=== PATIENT | female | born 1990 | race Caucasian/White ===

== ENCOUNTER 2016-07-13 20:55 | Emergency (ER) | payer OTHER ==
[~2016-07-13 20:55] MED LIST: ALBUTEROL MININEB NEB; ALBUTEROL17 G1 IH; ALBUTEROL17 GM; ALBUTEROL17 GM INH; AMOXICILLIN250 MG; BENZONATATE PO; BIRTHCONTROL IMPLANT; BROMPHED; DICLOFENAC PO; DOXYCYCLINE PO; FIORINAL CAPSUL1 CAP PO; FLEXERIL10 MG PO; GABAPENTIN800 MG PO; IBUPROFEN PO; MOTRIN600 M2 PO; NO MEDICATIONS; OXAYDO7.5 MG PO; PERCOCET 10/3251 TAB PO; PHENERGAN PO; PHENERGAN25 MG PO; PRENATAL MULITV1 TAB PO; PRENATAL1 TA1 PO; REGLAN PO; ROBITUSSIN A-C S5 ML; ULTRAM PO; UNISOM25 MG PO; VICODIN PO; VITAMIN B650 M2 PO; VOLTAREN75 MG PO; ZITHROMAX PO; ZOFRAN PO
[2016-07-13 21:08] LABS: INFLUENZA A POS (NEG); INFLUENZA B NEG (NEG)
[2016-07-13 21:38] LABS: URINE SOURCE CLEAN CATCH
[2016-07-13 21:39] LABS: BASOPHIL# 0.1 X10e3 (0-0.3); BASOPHIL% 0.4 % (0-2.5); EOSINOPHIL% 0.2 % (0.0-7.0); HEMATOCRIT 40.3 % (35.0-45.0); HEMOGLOBIN 13.4 gm/dL (12.0-16.0); LYMPHOCYTE# 1.5 X10e3 (1.0-3.5); LYMPHOCYTE% 8.8 % (17.0-45.0); MEAN CELL VOLUME 89.1 FL (83-96); MEAN CORPUSCULAR HEMOGLOBIN 29.7 PG (28-34); MEAN CORPUSCULAR HGB CONC 33.3 g/dL (30-36); MEAN PLATELET VOLUME 9.6 FL (6.5-11.5); MONOCYTE# 1.3 X10e3 (0-1.0); MONOCYTE% 7.5 % (3.0-12.0); NEUTROPHIL# 13.9 X10e3 (1.5-7.1); NEUTROPHIL% 83.1 % (40-75); PLATELET COUNT 251 X10e3 (140-420); RED BLOOD COUNT 4.52 X10e (3.90-5.30); RED CELL DISTRIBUTION WIDTH 13.2 % (11.0-15.5); URINE APPEARANCE CLEAR; URINE BILIRUBIN NEG (NEG); URINE BLOOD NEG (NEG); URINE COLOR YELLOW; URINE GLUCOSE NEG (NORM); URINE KETONE TRACE (NEG); URINE LEUKOCYTE ESTERASE NEG (NEG); URINE NITRATE NEG (NEG); URINE PROTEIN TRACE (NEG); URINE SPECIFIC GRAVITY 1.025 (1.003-1.035); URINE UROBILINOGEN 0.2 MG/DL (NORM); WHITE BLOOD COUNT 16.7 X10e3 (4.0-10.5)
[2016-07-13 21:40] LABS: DIFF IND NO
[2016-07-13 21:45] LABS: MICRO INDICATED? YES
[2016-07-13 21:46] LABS: CULTURE INDICATED? NO; URINE BACTERIA NEG (NEG); URINE MUCUS PRESENT; URINE RBC 0-2 /[HPF] (0-2); URINE SQUAMOUS EPITHELIAL CELL OCCAS /[HPF]
[2016-07-13 22:03] LABS: ALKALINE PHOSPHATASE 229 U/L (32-92); ALT (SGPT) 44 U/L (10-40); AST (SGOT) 39 U/L (10-42); BILIRUBIN,TOTAL 0.5 mg/dL (0.2-2.0); BLOOD UREA NITROGEN 6 mg/dL (9-23); CALCIUM SERUM 8.7 mg/dL (8.4-10.2); CARBON DIOXIDE 24 mmol/L (22-31); CHLORIDE 99 mmol/L (100-111); CREATININE SERUM 0.5 mg/dL (0.6-1.4); GLOM FILT RATE Estimated ABOVE60 mL/min (>60); GLUCOSE FASTING 102 mg/dL (70-110); PROTEIN TOTAL SERUM 6.7 g/dL (6.0-8.3); SODIUM 130 mmol/L (135-145)
[2016-07-13 23:08] LABS: AMPHETAMINE POS (NEG); BARBITURATES NEG (NEG); BENZODIAZEPINES NEG (NEG); COCAINE NEG (NEG); MARIJUANA NEG (NEG); OPIATES NEG (NEG); TRICYCLIC ANTIDEPRESSANTS NEG (NEG); U METHADONE NEG (NEG)
[2016-09-05] MEDS ORDERED: ZANAFLEX4 M1 PO (20:06)
[2016-09-05] MEDS ORDERED: PERCOCET 7.5-31 EACH PO (20:06)
[2016-09-05] MEDS ORDERED: NEURONTIN800 MG PO (20:06)
== END 2016-07-13 22:20 | disposition left against medical advice (07) ==
LOC: SED 20:55
PROVIDERS: Physician Assistant
DX: O26.893 Other specified pregnancy related conditions, third trimester (principal); O99.333 Smoking (tobacco) complicating pregnancy, third trimester; J45.909 Unspecified asthma, uncomplicated; R03.0 Elevated blood-pressure reading, without diagnosis of hypertension; F17.210 Nicotine dependence, cigarettes, uncomplicated
CPT/HCPCS: 80053; 80307; 81003; 85025; 87651; 87804; 94640; 96361; 96374; 99284; J2930

== ENCOUNTER 2016-09-05 20:49 | Emergency (ER) | payer OTHER ==
[~2016-09-05 20:49] MED LIST changes: +NEURONTIN800 MG PO; +PERCOCET 7.5-31 EACH PO; +ZANAFLEX4 M1 PO
[2016-09-05 20:55] LABS: BASOPHIL% 0.1 % (0-2.5); HEMOGLOBIN 11.9 gm/dL (12.0-16.0); LYMPHOCYTE# 1.9 X10e3 (1.0-3.5); LYMPHOCYTE% 9.3 % (17.0-45.0); MEAN CELL VOLUME 86.5 FL (83-96); MEAN CORPUSCULAR HEMOGLOBIN 29.4 PG (28-34); MEAN PLATELET VOLUME 8.1 FL (6.5-11.5); MONOCYTE# 2.3 X10e3 (0-1.0); MONOCYTE% 11.1 % (3.0-12.0); NEUTROPHIL# 16.1 X10e3 (1.5-7.1); NEUTROPHIL% 79.5 % (40-75); PLATELET COUNT 252 X10e3 (140-420); RED BLOOD COUNT 4.05 X10e (3.90-5.30); RED CELL DISTRIBUTION WIDTH 13.8 % (11.0-15.5); WHITE BLOOD COUNT 20.3 X10e3 (4.0-10.5)
[2016-09-05 21:02] LABS: DIFF IND YES
[2016-09-05 21:11] LABS: ALBUMIN SERUM 3.1 g/dL (3.5-5.0); BILIRUBIN,TOTAL 1.2 mg/dL (0.2-2.0); BUN/CREATININE RATIO 11.66; CALCIUM SERUM 8.6 mg/dL (8.4-10.2); CREATININE SERUM 1.2 mg/dL (0.6-1.4); GLOM FILT RATE Estimated 61.9 mL/min (>60); POTASSIUM 3.4 mmol/L (3.5-5.1); PROTEIN TOTAL SERUM 6.5 g/dL (6.0-8.3)
[2016-09-05 21:19] LABS: ANISOCYTOSIS SL; PLATELET ESTIMATE NORMAL (NORMAL)
[2016-09-05 21:21] LABS: URINE SOURCE CLEAN CATCH
[2016-09-05 21:24] LABS: URINE APPEARANCE SL CLOUDY; URINE BILIRUBIN NEG (NEG); URINE BLOOD 3+ (NEG); URINE COLOR YELLOW; URINE GLUCOSE NEG (NORM); URINE KETONE NEG (NEG); URINE LEUKOCYTE ESTERASE 3+ (NEG); URINE NITRATE NEG (NEG); URINE PROTEIN 2+ (NEG); URINE UROBILINOGEN 0.2 MG/DL (NORM)
[2016-09-05 21:26] LABS: MICRO INDICATED? YES
[2016-09-05 21:34] LABS: CULTURE INDICATED? YES; URINE BACTERIA 1+ (NEG); URINE MUCUS PRESENT; URINE RBC 50-100 /[HPF] (0-2); URINE SQUAMOUS EPITHELIAL CELL MODERATE /[HPF]; URINE TRANSITIONAL EPI CELLS OCCAS /[HPF]; URINE WBC INNUM /[HPF] (0-5)
== END 2016-09-05 22:37 | disposition home or self-care (01) ==
LOC: SED 20:49
DX: N39.0 Urinary tract infection, site not specified (principal); J45.909 Unspecified asthma, uncomplicated; F17.200 Nicotine dependence, unspecified, uncomplicated
CPT/HCPCS: 36415; 80053; 81003; 83605; 84703; 85025; 87086; 87088; 87186; 96361; 96365; 99284; J0696

== ENCOUNTER 2016-09-07 02:56 | Emergency (ER) | payer OTHER ==
--- NOTE | ~2016-09-07 | CT4 ---
[facility] A Service of [facility] RADIOLOGY TEXT RESULTS PATIENT: CHANCE FORMAN LOCATION: SED : 88 UNIT #: [id number] AGE: [address]: Misa Casillas MD SEX: F ORDER DR: [id number] [place] [id number] E MR#: [id number] Acc #: [id number] NAME: CHANCE FORMAN : 1990 SEX: F STUDY DATE/TIME: 09/07/2016 3:44 UNIT: SED ROOM: STUDY DESCRIPTION: CT Abd and Pelv Wo Cont Attending Physician: Misa Casillas M.D. Ordering Physician: Misa Caslilas M.D. Primary Care Physician: Juanito Francisco Jr., A.P.R.N. MEDICAL IMAGING REPORT This report is preliminary unless electronic signature is present. EXAM CT abdomen and pelvis without contrast DATE 09/07/2016 HISTORY 26-year-old female with history of urinary tract infection diagnosed yesterday, now feeling worse. Left lower quadrant abdominal pain with nausea and vomiting. 3 weeks . COMPARISON No prior CT abdomen and pelvis at this institution for comparison. PROCEDURE 3 mm noncontrast axial images through the abdomen and pelvis. Enteric contrast was not administered. Sagittal and coronal reformatted images were obtained. This CT exam was performed with one or more of the following radiation dose reduction techniques: automatic exposure control, adjustment of mA and/or kV according to patient size, and iterative reconstruction. FINDINGS There is very subtle left perinephric stranding suggesting changes of underlying nephritis. However, no urinary tract stone or hydronephrosis is seen. Lung bases are free of consolidation. Noncontrast appearance of the liver, pancreas, adrenals, right kidney is within normal limits. Spleen is mildly enlarged measuring nearly 14.7 cm [id number]. Small gallstones are present without pericholecystic inflammation or biliary ductal dilation. Limited evaluation of bowel due to lack of enteric contrast but no focal bowel inflammation is seen. The appendix is normal. [facility] A Service of [facility] RADIOLOGY TEXT RESULTS PATIENT: CHANCE FORMAN LOCATION: SED : 89 UNIT #: [id number] AGE: [address]: Misa Casillas MD SEX: F ORDER DR: PELVIS FINDINGS: Uterus appears very mildly thickened, not unexpected in the state. The urinary bladder is decompressed. Rectum is within normal limits. Posterior spinal fusion changes are present at L4-5. IMPRESSION 1. Subtle left perinephric stranding suggesting changes of underlying left nephritis. Correlate with urinalysis findings and clinical symptoms. No urinary tract stone or hydronephrosis. 2. Mild splenomegaly. 3. Uterus appears very mildly bulky which is not unexpected in the state. No pelvic free fluid. 4. Uncomplicated cholelithiasis. 5. L4-5 posterior spinal fusion. Dictated by... Tracie De Leon M.D. THIS IS AN ELECTRONICALLY VERIFIED REPORT Tracie De Leon M.D. at 09/08/2016 4:19 AM ANDREA/samara TD: 09/07/2016 08:08 JOB #: [id number] MEDICAL IMAGING REPORT Page 1 of 1
[2016-09-07 02:54] LABS: URINE SOURCE CLEAN CATCH
[2016-09-07 02:57] LABS: URINE APPEARANCE HAZY; URINE BILIRUBIN NEG (NEG); URINE BLOOD 1+ (NEG); URINE COLOR YELLOW; URINE GLUCOSE NEG (NORM); URINE KETONE NEG (NEG); URINE LEUKOCYTE ESTERASE 1+ (NEG); URINE NITRATE NEG (NEG); URINE PROTEIN 2+ (NEG)
[2016-09-07 03:03] LABS: MICRO INDICATED? YES
[2016-09-07 03:04] LABS: URINE WBC 100-200 /[HPF] (0-5)
[2016-09-07 03:06] LABS: URINE BACTERIA 1+ (NEG); URINE MUCUS PRESENT; URINE SQUAMOUS EPITHELIAL CELL MODERATE /[HPF]; URINE TRANSITIONAL EPI CELLS FEW /[HPF]
[2016-09-07 03:32] LABS: BASOPHIL# 0.1 X10e3 (0-0.3); BASOPHIL% 0.4 % (0-2.5); EOSINOPHIL# 0.1 X10e3 (0-0.7); EOSINOPHIL% 0.8 % (0.0-7.0); HEMATOCRIT 33.1 % (35.0-45.0); HEMOGLOBIN 11.1 gm/dL (12.0-16.0); LYMPHOCYTE# 1.5 X10e3 (1.0-3.5); LYMPHOCYTE% 10.4 % (17.0-45.0); MEAN CELL VOLUME 86.9 FL (83-96); MEAN CORPUSCULAR HEMOGLOBIN 29.1 PG (28-34); MEAN CORPUSCULAR HGB CONC 33.6 g/dL (30-36); MEAN PLATELET VOLUME 8.7 FL (6.5-11.5); MONOCYTE# 1.9 X10e3 (0-1.0); MONOCYTE% 13.2 % (3.0-12.0); NEUTROPHIL# 10.6 X10e3 (1.5-7.1); NEUTROPHIL% 75.2 % (40-75); PLATELET COUNT 257 X10e3 (140-420); RED BLOOD COUNT 3.82 X10e (3.90-5.30); RED CELL DISTRIBUTION WIDTH 13.9 % (11.0-15.5); WHITE BLOOD COUNT 14.1 X10e3 (4.0-10.5)
[2016-09-07 03:33] LABS: DIFF IND NO
[2016-09-07 03:46] LABS: BUN/CREATININE RATIO 18.57; CALCIUM SERUM 8.3 mg/dL (8.4-10.2); CREATININE SERUM 0.7 mg/dL (0.6-1.4); GLOM FILT RATE Estimated 118.7 mL/min (>60)
[2016-09-07 03:47] LABS: POTASSIUM 3.5 mmol/L (3.5-5.1)
== END 2016-09-07 05:23 | disposition home or self-care (01) ==
LOC: SED 02:56
PROVIDERS: Emergency Medicine
DX: O86.21 Infection of kidney following delivery (principal); O99.53 Diseases of the respiratory system complicating the puerperium; O99.335 Smoking (tobacco) complicating the puerperium; F17.210 Nicotine dependence, cigarettes, uncomplicated; Z87.440 Personal history of urinary (tract) infections
CPT/HCPCS: 74176; 80048; 81003; 85025; 96361; 96374; 96375; 99284; J0696; J1885; J2405

== ENCOUNTER 2016-09-19 12:05 | Emergency (ER) | payer OTHER | END 2016-09-19 13:23 | disposition home or self-care (01) | LOC: SED 12:05 | DX: R51 Headache (principal); M54.9 Dorsalgia, unspecified; G89.29 Other chronic pain; F17.200 Nicotine dependence, unspecified, uncomplicated | CPT/HCPCS: 84703; 99283; J1200; J1885; J2765 ==

== ENCOUNTER 2016-10-28 16:09 | Emergency (ER) | payer OTHER ==
[2016-10-28 16:48] LABS: URINE SOURCE CLEAN CATCH
[2016-10-28 16:53] LABS: BASOPHIL% 0.6 % (0-2.5); EOSINOPHIL# 0.3 X10e3 (0-0.7); EOSINOPHIL% 4.3 % (0.0-7.0); HEMATOCRIT 37.3 % (35.0-45.0); HEMOGLOBIN 12.6 gm/dL (12.0-16.0); LYMPHOCYTE# 2.7 X10e3 (1.0-3.5); LYMPHOCYTE% 44.6 % (17.0-45.0); MEAN CELL VOLUME 86.6 FL (83-96); MEAN CORPUSCULAR HEMOGLOBIN 29.4 PG (28-34); MEAN CORPUSCULAR HGB CONC 33.9 g/dL (30-36); MEAN PLATELET VOLUME 8.5 FL (6.5-11.5); MONOCYTE# 0.4 X10e3 (0-1.0); MONOCYTE% 7.2 % (3.0-12.0); NEUTROPHIL# 2.6 X10e3 (1.5-7.1); NEUTROPHIL% 43.3 % (40-75); PLATELET COUNT 227 X10e3 (140-420); RED CELL DISTRIBUTION WIDTH 14.6 % (11.0-15.5)
[2016-10-28 17:02] LABS: URINE APPEARANCE CLEAR; URINE BILIRUBIN NEG (NEG); URINE BLOOD NEG (NEG); URINE COLOR YELLOW; URINE GLUCOSE NEG (NORM); URINE KETONE NEG (NEG); URINE LEUKOCYTE ESTERASE NEG (NEG); URINE NITRATE NEG (NEG); URINE PROTEIN NEG (NEG); URINE SPECIFIC GRAVITY >=1.030 (1.003-1.035); URINE UROBILINOGEN 0.2 MG/DL (NORM)
[2016-10-28 17:07] LABS: DIFF IND NO
[2016-10-28 17:08] LABS: MICRO INDICATED? NO
[2016-10-28 17:10] LABS: AMPHETAMINE POS (NEG); BARBITURATES NEG (NEG); BENZODIAZEPINES NEG (NEG); COCAINE POS (NEG); MARIJUANA NEG (NEG); OPIATES POS (NEG); TRICYCLIC ANTIDEPRESSANTS NEG (NEG); U METHADONE NEG (NEG)
[2016-10-28 17:13] LABS: BUN/CREATININE RATIO 12.85; CALCIUM SERUM 9.2 mg/dL (8.4-10.2); CREATININE SERUM 0.7 mg/dL (0.6-1.4); GLOM FILT RATE Estimated 118.7 mL/min (>60); POTASSIUM 3.6 mmol/L (3.5-5.1)
== END 2016-10-28 17:39 | disposition home or self-care (01) ==
LOC: SED 16:09
PROVIDERS: Physician Assistant
DX: G43.909 Migraine, unspecified, not intractable, without status migrainosus (principal); F19.10 Other psychoactive substance abuse, uncomplicated; F17.210 Nicotine dependence, cigarettes, uncomplicated; Z79.899 Other long term (current) drug therapy
CPT/HCPCS: 36415; 80048; 80164; 80307; 81003; 84703; 85025; 96374; 96375; 99283; J0780; J1200